=== PATIENT | female | born 1955 ===

== ENCOUNTER → 2025-01-04 | Emergency (ER) | payer OTHER ==
[~2025-01-04] VITALS: Ht 160 cm; Wt 66.7 kg
[~2025-01-04] MED LIST: BACLOFEN10 MG PO; CELEBREX100 MG PO; DICLOFENAC SODI75 MG PO; IBU600 MG PO; KETOROLAC TROMETHAMINE 60 MG VIAL IM ONE; MORGIDOX100 MG PO; TIROSINT13 MCG
[2025-01-04 15:20] LABS: BASO % 0.8 % (0.1-1.2); EOS # 0.03 (0.04-0.54); EOS % 0.3 % (0.7-7.0); HEMATOCRIT 38.1 % (34.1-44.9); HEMOGLOBIN 12.5 g/dL (11.2-15.7); LYMPH # 1.46 (1.18-3.74); LYMPH % 15.5 % (19.3-53.1); MEAN CORPUSCULAR HEMOGLOBIN 26.8 pg (25.6-32.2); MONO # 0.54 (0.24-0.82); MONO % 5.7 % (4.7-12.5); NEUT # 7.29 (1.56-6.13); NEUT % 77.5 % (34.0-71.1); PLATELET COUNT 449 K/uL (163-369); RED BLOOD COUNT 4.67 M/uL (3.93-5.22)
[2025-01-04 16:12] LABS: BILIRUBIN TOTAL 0.56 mg/dL (0.3-1.2); CALCIUM 10.1 mg/dL (8.5-10.1); CREATININE SERUM 0.6 mg/dL (0.55-1.02); GFR 99.12; GLOBULINA 4.1 G/DL (2.4-3.5); POTASSIUM 4.08 mEq/L (3.5-5.1); TOTAL PROTEIN 8.1 gm/dL (6.4-8.2)
[2025-01-04 16:59] LABS: URINE APPEARANCE Clear; URINE BILIRRUBIN Negative (NEGATIVE); URINE BLOOD Moderate; URINE COLOR Yellow; URINE GLUCOSE Negative (NEGATIVE); URINE KETONE Negative (NEGATIVE); URINE LEUKOCYTE Negative; URINE NITRATE Negative; URINE PROTEIN Negative (NEGATIVE); URINE UROBILINOGEN 0.2 E.U./dl
[2025-01-04 17:04] LABS: URINE BACTERIA 232.5 uL (0.0-1933); URINE EPITHELIAL CELLS 6.3 uL (0.0-38.8); URINE RBC 32.9 uL (0.0-20.8)
[2025-01-04 17:11] LABS: URINE CAST 0.44 uL (0.0-1.40)
== END | disposition home or self-care (01) ==
LOC: ER 11:30
PROVIDERS: General Practice
DX: M25.59 Pain in other specified joint (principal); E03.8 Other specified hypothyroidism; Z88.0 Allergy status to penicillin; M50.20 Other cervical disc displacement, unspecified cervical region; N20.0 Calculus of kidney; G43.909 Migraine, unspecified, not intractable, without status migrainosus; K57.30 Diverticulosis of large intestine without perforation or abscess without bleeding
CPT/HCPCS: 36415; 74176; 96372; 99284; J1885